=== PATIENT | female | born 1925 | race Caucasian/White ===

== ENCOUNTER 2016-04-08 19:37 | Inpatient (IN) | payer MEDICARE, OTHER ==
[~2016-04-08] VITALS: Ht 160 cm; Wt 53.0 kg
[2016-04-08 21:59] VITALS: BP 122/83; PULSE 115; TEMP 98.7
[2016-04-08] MEDS ORDERED: ANACIN PO (22:10)
[2016-04-08] MEDS ORDERED: SYNTHROID0.075 MG/T PO (22:11)
[2016-04-08] MEDS ORDERED: ASPIRIN 81M81 MG/TA2 PO (22:11)
[2016-04-08] MEDS ORDERED: TOPROL XL 25MG25 MG PO (22:12)
[2016-04-08] MEDS ORDERED: FISH OIL 1000MG1 CAP PO (22:13)
[2016-04-08 23:35] VITALS: BP 111/65; PULSE 72; TEMP 98.6
[2016-04-09 05:00] VITALS: BP 121/72; PULSE 74; TEMP 98.4
[2016-04-09 08:00] VITALS: BP 131/74; PULSE 79; TEMP 99
[2016-04-09 14:12] VITALS: BP 112/86; PULSE 78; TEMP 98.7
[2016-04-09 17:22] VITALS: BP 125/58; PULSE 79; TEMP 99.4
[2016-04-09 21:32] VITALS: BP 124/68; PULSE 60; TEMP 99.5
[2016-04-10 01:30] VITALS: BP 106/57; PULSE 43
[2016-04-10 04:58] VITALS: BP 134/78; PULSE 92; TEMP 98.5
[2016-04-10 09:38] VITALS: BP 136/72; PULSE 87; TEMP 97.8
[2016-04-10 13:13] VITALS: BP 165/84; PULSE 67; TEMP 99.1
[2016-04-10 14:15] VITALS: TEMP 98.7
== END 2016-04-10 16:00 | disposition home or self-care (01) | DRG 694 ==
LOC: SURG 19:37 → ICU 21:44 → SURG 21:44 → ICU 23:35 → SURG 04-09 → ICU 04-09 → SURG 04-09 11:32 → ICU 04-09 11:32 → SURG 04-09 11:32
PROVIDERS: Urology
PROC: 0T768DZ Dilation of Right Ureter with Intraluminal Device, Via Natural or Artificial Opening Endoscopic (ICD-10-PCS; principal; 2016-04-08 22:00)
DX: N20.1 Calculus of ureter (principal)
CPT/HCPCS: C1769; C2617; J0690; J1100; J2405; J2704; J3010

== ENCOUNTER 2016-06-07 05:33 | Day surgery (SDC) | payer MEDICARE, OTHER ==
[~2016-06-07] VITALS: Ht 157.5 cm; Wt 50.0 kg
[~2016-06-07 05:33] MED LIST: ANACIN PO; ASPIRIN 81M81 MG/TA2 PO; FISH OIL 1000MG1 CAP PO; SYNTHROID0.075 MG/T PO; TOPROL XL 25MG25 MG PO
[2016-06-07 06:21] VITALS: BP 154/85; PULSE 68; TEMP 97.7
[2016-06-07] MEDS ORDERED: CIPRO 500MG TA500 MG PO (06:29)
[2016-06-07] MEDS ORDERED: ARTHRITIS PAIN PO (06:30)
[2016-06-07 06:34] LABS: BASO # 0.1 (0.0-0.2); BASO % 0.9 % (0.0-2.0); EOS # 0.3 (0.0-0.7); EOS % 5.8 % (0-4.0); GRAN # 3.2 (1.4-6.5); GRAN % 58.1 % (42.2-75.2); LYMPH # 1.3 (1.2-3.4); LYMPH % 23.7 % (20.0-51.0); MEAN CELL VOLUME 90 fl (80.0-100.0); MEAN CORPUSCULAR HGB CONC 33 g/dl (33.0-37.0); MEAN PLATELET VOLUME 10.2 fl (7.4-10.4); MONO # 0.6 (0.1-0.6); MONO % 11.1 % (1.7-9.3); PLATELET COUNT 257 K/mm3 (130-400); RED BLOOD COUNT 3.91 M/mm3 (4.10-5.30); REDCELL DISTRIBUTION WIDTH-CV 13.1 % (11.5-14.5); WHITE BLOOD COUNT 5.5 K/mm3 (4.8-10.8)
[2016-06-07 06:35] LABS: HEMATOCRIT 35.3 % (37.0-47.0); HEMOGLOBIN 11.6 g/dl (12.5-16.0); MEAN CORPUSCULAR HEMOGLOBIN 30 pg (27.0-31.0)
[2016-06-07 08:40] VITALS: BP 150/63; PULSE 77; TEMP 97.7
[2016-06-07 08:55] VITALS: BP 134/80; PULSE 80
[2016-06-07 09:42] VITALS: BP 144/86; PULSE 76; TEMP 98.3
== END 2016-06-07 09:42 | disposition home or self-care (01) ==
LOC: SDCO 05:33
PROVIDERS: Urology
DX: N20.0 Calculus of kidney (principal); N20.2 Calculus of kidney with calculus of ureter
CPT/HCPCS: C1769; J0360; J0690; J1100; J2405; J2704; J3010; J7120; Q9967